=== PATIENT | female | born 1945 | race Caucasian/White ===

== ENCOUNTER 2016-05-08 07:07 | Day surgery (SDC) | payer BC ==
[~2016-05-08 07:07] MED LIST: PHENYLEPHRINE 2.5% OPHTH 2 ML DROPS ONE
[2016-05-08] MEDS ORDERED: LACTATED RINGERS 500 ML IV ONE ×2 (07:21→09:44)
[2016-05-08] MEDS ORDERED: KETOROLAC 0.45% OPHTH DROPS OPTH ONE (07:25)
[2016-05-08] MEDS ORDERED: PROPARACAINE 0.5% OPHTH DROPS 15 ML OPTH ONE ×2 (07:25→08:07)
[2016-05-08] MEDS ORDERED: CYCLOPENTOLATE 1% OPHTH DROPS 2 ML OPTH ONE (07:25)
[2016-05-08] MEDS ORDERED: PHENYLEPHRINE 2.5% OPHTH 2 ML DROPS OPTH ONE (07:25)
[2016-05-08] MEDS ORDERED: BRIMONIDINE 0.2% OPHTH DROPS 5 ML OPTH ONE (08:07)
[2016-05-08] MEDS ORDERED: EPINEPHrine 1 MG/ML AMP IVP ONE (08:07)
[2016-05-08] MEDS ORDERED: TIMOLOL 0.5% OPHTH DROPS OPTH ONE (08:07)
[2016-05-08] MEDS ORDERED: CHONDR SULF/HYALURONATE SYRINGE IO ONE (08:07)
[2016-05-08] MEDS ORDERED: TRIAMCIN/MOXIFLOX/VANCO 1 ML VIAL IO ONE ×2 (08:08)
[2016-05-08] MEDS ORDERED: BSS/LIDOCAINE/EPINEPHRINE 1 ML SYRINGE IO ONE ×2 (08:08)
[2016-05-08] MEDS ORDERED: LIDOCAINE-MPF 2% 5 ML VIAL IM ONE (08:30)
[2016-05-08] MEDS ORDERED: PROPOFOL 200 MG/20 ML VIAL IVP ONE (08:30)
[2016-05-08] MEDS ORDERED: DEXAMETHASONE 4 MG/ML VIAL IVP ONE (08:30)
[2016-05-08] MEDS ORDERED: MIDAZOLAM 2 MG/2 ML VIAL IVP ONE (08:30)
[2016-05-08] MEDS ORDERED: ONDANSETRON 4 MG/2 ML VIAL IVP ONE (08:30)
[2016-05-08] MEDS ORDERED: KETOROLAC 15 MG/ML VIAL ONE (09:25)
[2016-05-08] MEDS ORDERED: ALBUTEROL NEB 2.5 MG/3 ML INH ONE (09:34)
== END 2016-05-08 07:08 | disposition home or self-care (01) ==
PROC: 08RK3JZ Replacement of Left Lens with Synthetic Substitute, Percutaneous Approach (ICD-10-PCS; principal; 2016-05-08 08:15)
DX: H25.12 Age-related nuclear cataract, left eye (principal); J45.909 Unspecified asthma, uncomplicated; Z83.511 Family history of glaucoma; F32.9 Major depressive disorder, single episode, unspecified; Z95.3 Presence of xenogenic heart valve; J44.9 Chronic obstructive pulmonary disease, unspecified; Z90.710 Acquired absence of both cervix and uterus; Z90.49 Acquired absence of other specified parts of digestive tract; Z88.5 Allergy status to narcotic agent; F17.200 Nicotine dependence, unspecified, uncomplicated; I11.0 Hypertensive heart disease with heart failure; I50.9 Heart failure, unspecified; E78.5 Hyperlipidemia, unspecified; F41.9 Anxiety disorder, unspecified
CPT/HCPCS: 66984; A9270; J7613; V2632

== ENCOUNTER 2016-07-03 09:23 | Day surgery (SDC) | payer BC ==
[2016-07-03] MEDS ORDERED: PHENYLEPHRINE 2.5% OPHTH 2 ML DROPS ONE (09:45)
[2016-07-03] MEDS ORDERED: CYCLOPENTOLATE 1% OPHTH DROPS 2 ML OPTH ONE (10:05)
[2016-07-03] MEDS ORDERED: KETOROLAC 0.45% OPHTH DROPS OPTH ONE (10:05)
[2016-07-03] MEDS ORDERED: PHENYLEPHRINE 2.5% OPHTH 2 ML DROPS OPTH ONE (10:05)
[2016-07-03] MEDS ORDERED: PROPARACAINE 0.5% OPHTH DROPS 15 ML OPTH ONE ×2 (10:05→10:51)
[2016-07-03] MEDS ORDERED: LACTATED RINGERS 500 ML IV ONE (10:12)
[2016-07-03] MEDS ORDERED: EPINEPHrine 1 MG/ML AMP IVP ONE (10:50)
[2016-07-03] MEDS ORDERED: BRIMONIDINE 0.2% OPHTH DROPS 5 ML OPTH ONE (10:50)
[2016-07-03] MEDS ORDERED: CHONDR SULF/HYALURONATE SYRINGE IO ONE (10:51)
[2016-07-03] MEDS ORDERED: TRIAMCIN/MOXIFLOX/VANCO 1 ML VIAL IO ONE ×2 (10:51)
[2016-07-03] MEDS ORDERED: TIMOLOL 0.5% OPHTH DROPS OPTH ONE (10:51)
[2016-07-03] MEDS ORDERED: BSS/LIDOCAINE/EPINEPHRINE 1 ML SYRINGE IO ONE ×2 (10:51)
[2016-07-03] MEDS ORDERED: ePHEDrine 50 MG/ML VIAL IVP ONE (11:00)
[2016-07-03] MEDS ORDERED: ONDANSETRON 4 MG/2 ML VIAL IVP ONE (11:00)
[2016-07-03] MEDS ORDERED: fentaNYL 100 MCG/2 ML VIAL IVP ONE (11:00)
[2016-07-03] MEDS ORDERED: PROPOFOL 200 MG/20 ML VIAL IVP ONE (11:00)
[2016-07-03] MEDS ORDERED: MIDAZOLAM 2 MG/2 ML VIAL IVP ONE (11:00)
[2016-07-03] MEDS ORDERED: LIDOCAINE-MPF 2% 5 ML VIAL IM ONE (11:00)
[2016-07-03] MEDS ORDERED: SODIUM CHLORIDE 0.9% 10 ML VIAL IV ONE (11:00)
[2016-07-03] MEDS ORDERED: PHENYLEPHRINE 50 MG/5 ML VIAL IV ONE (11:00)
== END 2016-07-03 09:24 | disposition home or self-care (01) ==
PROC: 08RJ3JZ Replacement of Right Lens with Synthetic Substitute, Percutaneous Approach (ICD-10-PCS; principal; 2016-07-03 10:30)
DX: H25.11 Age-related nuclear cataract, right eye (principal); I10 Essential (primary) hypertension; F32.9 Major depressive disorder, single episode, unspecified; F17.200 Nicotine dependence, unspecified, uncomplicated; J44.9 Chronic obstructive pulmonary disease, unspecified; E78.5 Hyperlipidemia, unspecified; Z90.49 Acquired absence of other specified parts of digestive tract; Z90.710 Acquired absence of both cervix and uterus; Z95.2 Presence of prosthetic heart valve; Z88.5 Allergy status to narcotic agent
CPT/HCPCS: 66984; A9270; V2632

== ENCOUNTER 2016-11-11 23:26 | Outpatient (CLI) | payer BC | END 2016-11-11 23:27 | disposition critical access hospital (66) | LOC: EMS 23:26 | PROVIDERS: ATTEND Surgery | DX: R06.02 Shortness of breath (principal) | CPT/HCPCS: A0425; A0427 ==